=== PATIENT | male | born 1995 | race Caucasian/White ===

== ENCOUNTER 2020-11-05 22:20 | Emergency (ER) | payer OTHER ==
[~2020-11-05] VITALS: Ht 177.8 cm; Wt 80.0 kg
[2020-11-05 22:25] VITALS: BP 158/96
--- NOTE | 2020-11-05 23:10 | NUR ---
First contact for d/c pt verbalizes understanding of instruct and f/u. to return to er if worse or concerns.
== END 2020-11-05 23:11 | disposition home or self-care (01) ==
LOC: ED 23:00
DX: S16.1XXA Strain of muscle, fascia and tendon at neck level, initial encounter (principal); V49.59XA Passenger injured in collision with other motor vehicles in traffic accident, initial encounter; Y93.89 Activity, other specified; Y92.488 Other paved roadways as the place of occurrence of the external cause; Y99.8 Other external cause status
CPT/HCPCS: 99283